=== PATIENT | male | born 1955 | race Caucasian/White ===

== ENCOUNTER → 2016-10-26 | Outpatient (CLI) | payer MEDICARE, OTHER ==
[~2016-10-26] VITALS: Ht 185.4 cm; Wt 115.2 kg
[~2016-10-26] MED LIST: ALLOPURINOL300 MG PO; AMITRIPTYLINE H75 MG PO; ASPIR 8181 MG PO; CRESTOR10 MG PO; LISINOPRIL40 MG PO; METOPROLOL SUCC50 MG PO; OMEPRAZOLE20 MG PO; PERCOCET 10-321 EACH PO; XARELTO10 MG PO
[2016-10-26 09:33] LABS: HEMOGLOBIN 15.8 gm/dl (14.0-17.5); RED BLOOD COUNT 5.44 M/UL (4.20-5.50); WHITE BLOOD COUNT 6.2 K/UL (4.5-11.0)
[2016-10-26 09:49] LABS: BUN/CREATININE RATIO 13 (0-10)
== END ==
LOC: OPSV2 08:43
PROVIDERS: Orthopaedic Surgery
DX: Z01.812 Encounter for preprocedural laboratory examination (principal); Z01.810 Encounter for preprocedural cardiovascular examination; M17.11 Unilateral primary osteoarthritis, right knee
CPT/HCPCS: 36415; 80048; 85025; 87081; 93005

== ENCOUNTER 2016-11-08 05:39 | Inpatient (IN) | payer MEDICARE, OTHER ==
[~2016-11-08] VITALS: Ht 185.4 cm; Wt 115.2 kg
[~2016-11-08 05:39] MED LIST changes: -ASPIR 8181 MG PO; -CRESTOR10 MG PO; -PERCOCET 10-321 EACH PO; -XARELTO10 MG PO
[2016-11-08] MEDS ORDERED: ASPIR 8181 MG PO (06:58)
[2016-11-08] MEDS ORDERED: CRESTOR10 MG PO (06:58)
[2016-11-09 05:02] LABS: HEMOGLOBIN 12.2 gm/dl (14.0-17.5); RED BLOOD COUNT 4.22 M/UL (4.20-5.50); WHITE BLOOD COUNT 10.5 K/UL (4.5-11.0)
[2016-11-09 05:16] LABS: BUN/CREATININE RATIO 14 (0-10)
[2016-11-10 06:52] LABS: HEMOGLOBIN 12.3 gm/dl (14.0-17.5); RED BLOOD COUNT 4.17 M/UL (4.20-5.50); WHITE BLOOD COUNT 10.1 K/UL (4.5-11.0)
[2016-11-10 07:29] LABS: BUN/CREATININE RATIO 11 (0-10)
[2016-11-11 06:05] LABS: HEMOGLOBIN 11.2 gm/dl (14.0-17.5); RED BLOOD COUNT 3.88 M/UL (4.20-5.50); WHITE BLOOD COUNT 8.8 K/UL (4.5-11.0)
[2016-11-11 06:20] LABS: BUN/CREATININE RATIO 13 (0-10)
[2016-11-11] MEDS ORDERED: PERCOCET 10-321 EACH PO (19:39)
[2016-11-11] MEDS ORDERED: XARELTO10 MG PO (19:39)
[2017-02-09] MEDS ORDERED: XARELTO10 MG PO (14:11)
[2017-02-09] MEDS ORDERED: PERCOCET 10-321 EACH PO (14:12)
[2017-02-09] MEDS ORDERED: CRESTOR10 MG PO (14:19)
== END 2016-11-11 20:40 | disposition home health service (06) | DRG 470 ==
LOC: ZOBSOF 05:39 → MED SURG 4 16:47 → M/S 17:09
PROVIDERS: ADMIT Orthopaedic Surgery
PROC: 0SRC0J9 Replacement of Right Knee Joint with Synthetic Substitute, Cemented, Open Approach (ICD-10-PCS; principal; 2016-11-08 08:15)
DX: M17.11 Unilateral primary osteoarthritis, right knee (principal); I10 Essential (primary) hypertension; E78.5 Hyperlipidemia, unspecified; Z79.82 Long term (current) use of aspirin; Z79.899 Other long term (current) drug therapy; K21.9 Gastro-esophageal reflux disease without esophagitis; I95.1 Orthostatic hypotension; M19.90 Unspecified osteoarthritis, unspecified site; G89.29 Other chronic pain; M54.9 Dorsalgia, unspecified; Z82.49 Family history of ischemic heart disease and other diseases of the circulatory system; Z83.3 Family history of diabetes mellitus
CPT/HCPCS: 36415; 71010; 73560; 80048; 85025; 86850; 86900; 86901; 97110; 97116; 97530; 97535; C1776; J0690; J1100; J1200; J1885; J2250; J2270; J2274; J2405; J2710; J2795; J3010; J3370; J7030; J7050; J7120

== ENCOUNTER → 2017-01-17 | Outpatient (CLI) | payer MEDICARE, OTHER ==
[~2017-01-17] MED LIST changes: +ASPIR 8181 MG PO; +CRESTOR10 MG PO; +PERCOCET 10-321 EACH PO; +XARELTO10 MG PO
[2017-01-17 08:15] LABS: HEMOGLOBIN 14.9 gm/dl (14.0-17.5); RED BLOOD COUNT 5.33 M/UL (4.20-5.50); WHITE BLOOD COUNT 7.3 K/UL (4.5-11.0)
[2017-01-17 08:29] LABS: BUN/CREATININE RATIO 8 (0-10)
== END ==
LOC: OPSV2 07:44
PROVIDERS: Orthopaedic Surgery
DX: Z01.810 Encounter for preprocedural cardiovascular examination (principal); Z01.812 Encounter for preprocedural laboratory examination; M17.12 Unilateral primary osteoarthritis, left knee
CPT/HCPCS: 36415; 80048; 81001; 85025; 93005

== ENCOUNTER 2020-10-05 03:48 | Emergency (ER) | payer MEDICARE ==
[~2020-10-05 03:48] MED LIST changes: +NORCO 7.5-3251 EACH PO; +TRICOR48 MG PO
[2020-10-05 04:56] LABS: HEMOGLOBIN 15.5 gm/dl (14.0-17.5); RED BLOOD COUNT 5.22 M/UL (4.20-5.50); WHITE BLOOD COUNT 11.3 K/UL (4.5-11.0)
[2020-10-05 05:03] LABS: BUN/CREATININE RATIO 13 (0-10)
== END 2020-10-05 09:20 | disposition home or self-care (01) ==
LOC: ER1 03:48
PROVIDERS: Family Medicine
DX: R10.11 Right upper quadrant pain (principal); R07.9 Chest pain, unspecified; I10 Essential (primary) hypertension
CPT/HCPCS: 80053; 82550; 82553; 83605; 84484; 85025; 85379; 85610; 93005; 99285; Q9967

== ENCOUNTER → 2021-08-27 | Outpatient (CLI) | payer MEDICARE ==
[~2021-08-27] MED LIST changes: +ALLOPURINOL100 MG PO; +ASPIRIN EC81 MG PO; +CARVEDILOL25 MG PO; +CYCLOBENZAPRINE10 MG PO; +FAMOTIDINE40 MG PO; +FLOMAX 0.4 MG0.4 MG PO; +FOLIC ACID; +HYDROCODON-ACE1 EAC6 PO; +TEST; +TRAZODONE HCL150 MG PO; +VITAMIN B12; +VITAMIN D
[2021-08-27 13:19] LABS: RED BLOOD COUNT 5.66 M/UL (4.20-5.50)
== END ==
LOC: OPSV2 10:30 → EDSTATUS 10:30 → OPSV2 10:50
PROVIDERS: Orthopaedic Surgery
DX: Z01.818 Encounter for other preprocedural examination (principal); M47.26 Other spondylosis with radiculopathy, lumbar region; M51.16 Intervertebral disc disorders with radiculopathy, lumbar region; M43.16 Spondylolisthesis, lumbar region; M48.061 Spinal stenosis, lumbar region without neurogenic claudication
CPT/HCPCS: 36415; 71046; 80048; 81001; 85027; 85610; 85730; 87081; 93005

== ENCOUNTER 2021-09-06 05:06 | Inpatient (IN) | payer MEDICARE ==
[~2021-09-06] VITALS: Ht 185.4 cm; Wt 136.1 kg
[~2021-09-06 05:06] MED LIST changes: -ALLOPURINOL100 MG PO; -CARVEDILOL25 MG PO; -FAMOTIDINE40 MG PO; -FLOMAX 0.4 MG0.4 MG PO; -TEST; +TESTERONE
[2021-09-06 15:18] LABS: HEMOGLOBIN 13.7 gm/dl (14.0-17.5); RED BLOOD COUNT 4.58 M/UL (4.20-5.50); WHITE BLOOD COUNT 15.5 K/UL (4.5-11.0)
[2021-09-07 02:20] LABS: HEMOGLOBIN 12.6 gm/dl (14.0-17.5); RED BLOOD COUNT 4.32 M/UL (4.20-5.50); WHITE BLOOD COUNT 23.4 K/UL (4.5-11.0)
[2021-09-07] MEDS ORDERED: FAMOTIDINE40 MG PO (11:55)
[2021-09-07] MEDS ORDERED: ALLOPURINOL100 MG PO (11:57)
[2021-09-07] MEDS ORDERED: FLOMAX 0.4 MG0.4 MG PO (11:58)
[2021-09-07] MEDS ORDERED: CARVEDILOL25 MG PO (12:04)
[2021-09-07] MEDS ORDERED: ANASTROZOLE1 MG PO (13:43)
[2021-09-07] MEDS ORDERED: CRESTOR 10 MG T10 MG PO (13:44)
[2021-09-07] MEDS ORDERED: DEPO-TESTO200 MG/1 M SC (13:46)
[2021-09-07] MEDS ORDERED: LOSARTAN POTASS25 MG PO (13:47)
[2021-09-07] MEDS ORDERED: TRAZODONE HCL150 MG PO (13:48)
[2021-09-07] MEDS ORDERED: HYDROCODON-ACE1 EAC6 PO (13:49)
[2021-09-07] MEDS ORDERED: VITAMIN D21250 MCG PO (13:52)
[2021-09-07] MEDS ORDERED: TERAZOSIN HCL5 MG PO (13:54)
[2021-09-08 06:23] LABS: BUN/CREATININE RATIO 14 (0-10)
[2021-09-08 07:52] LABS: HEMOGLOBIN 11.4 gm/dl (14.0-17.5)
[2021-09-08 07:54] LABS: RED BLOOD COUNT 3.85 M/UL (4.20-5.50)
[2021-09-08 16:05] LABS: HEMOGLOBIN 11.2 gm/dl (14.0-17.5); RED BLOOD COUNT 3.88 M/UL (4.20-5.50); WHITE BLOOD COUNT 19.6 K/UL (4.5-11.0)
[2021-09-08 16:49] LABS: BUN/CREATININE RATIO 16 (0-10)
[2021-09-09 06:49] LABS: BUN/CREATININE RATIO 15 (0-10)
[2021-09-09 11:34] LABS: HEMOGLOBIN 9.9 gm/dl (14.0-17.5); WHITE BLOOD COUNT 16.5 K/UL (4.5-11.0)
[2021-09-09 11:39] LABS: RED BLOOD COUNT 3.44 M/UL (4.20-5.50)
[2021-09-10 06:12] LABS: HEMOGLOBIN 8.8 gm/dl (14.0-17.5)
[2021-09-10 06:13] LABS: RED BLOOD COUNT 3.09 M/UL (4.20-5.50); WHITE BLOOD COUNT 10.3 K/UL (4.5-11.0)
[2021-09-10 07:02] LABS: BUN/CREATININE RATIO 16 (0-10)
[2021-09-11 06:15] LABS: BUN/CREATININE RATIO 16 (0-10)
[2021-09-11 07:50] LABS: HEMOGLOBIN 9.1 gm/dl (14.0-17.5); RED BLOOD COUNT 3.04 M/UL (4.20-5.50); WHITE BLOOD COUNT 8.6 K/UL (4.5-11.0)
[2021-09-11 07:59] LABS: BUN/CREATININE RATIO 15 (0-10)
[2021-09-12 05:59] LABS: RED BLOOD COUNT 3.36 M/UL (4.20-5.50); WHITE BLOOD COUNT 8.3 K/UL (4.5-11.0)
[2021-09-12 06:58] LABS: BUN/CREATININE RATIO 14 (0-10)
[2021-09-13 05:31] LABS: HEMOGLOBIN 10.2 gm/dl (14.0-17.5); RED BLOOD COUNT 3.54 M/UL (4.20-5.50); WHITE BLOOD COUNT 8.7 K/UL (4.5-11.0)
[2021-09-13 06:05] LABS: BUN/CREATININE RATIO 17 (0-10)
[2021-09-14 08:55] LABS: HEMOGLOBIN 11.3 gm/dl (14.0-17.5); WHITE BLOOD COUNT 8.7 K/UL (4.5-11.0)
[2021-09-14 09:03] LABS: RED BLOOD COUNT 3.95 M/UL (4.20-5.50)
[2021-09-14] MEDS ORDERED: HYDROCODON-ACE1 EAC4 PO (09:12)
[2021-09-14 09:14] LABS: BUN/CREATININE RATIO 16 (0-10)
[2021-09-14] MEDS ORDERED: DOCUSATE SODIU100 MG PO (11:56)
[2021-09-14] MEDS ORDERED: POLYETHYLENE GL17 GM PO (11:56)
[2021-09-14] MEDS ORDERED: CARAFATE 1 GM TA1 GM PO (11:56)
[2021-09-14] MEDS ORDERED: MYCOSTATIN100000 UTS PO ×2 (11:56→11:57)
[2021-09-14] MEDS ORDERED: NITROGLYCERIN0.4 MG SL (11:57)
[2021-09-14] MEDS ORDERED: LEVOFLOXACIN750 MG PO (12:08)
[2021-09-14] MEDS ORDERED: MUPIROCIN22 GM TOP (12:08)
[2021-09-14] MEDS ORDERED: PROTONIX 40 MG40 M1 PO (12:08)
== END 2021-09-14 17:07 | disposition home health service (06) | DRG 453 ==
LOC: OR 05:06 → CCU 23:54
PROVIDERS: Internal Medicine; Internal Medicine Nephrology; Nurse Practitioner Family; ADMIT Orthopaedic Surgery
PROC: 0SB20ZZ Excision of Lumbar Vertebral Disc, Open Approach (ICD-10-PCS; 2021-09-06)
PROC: 01NB0ZZ Release Lumbar Nerve, Open Approach (ICD-10-PCS; 2021-09-06)
PROC: 4A11X4G Monitoring of Peripheral Nervous Electrical Activity, Intraoperative, External Approach (ICD-10-PCS; 2021-09-06)
PROC: 01NR0ZZ Release Sacral Nerve, Open Approach (ICD-10-PCS; principal; 2021-09-06 07:30)
PROC: 0SG30AJ Fusion of Lumbosacral Joint with Interbody Fusion Device, Posterior Approach, Anterior Column, Open Approach (ICD-10-PCS; 2021-09-06 07:30)
PROC: 0SG3071 Fusion of Lumbosacral Joint with Autologous Tissue Substitute, Posterior Approach, Posterior Column, Open Approach (ICD-10-PCS; 2021-09-06 07:30)
PROC: 0SG0071 Fusion of Lumbar Vertebral Joint with Autologous Tissue Substitute, Posterior Approach, Posterior Column, Open Approach (ICD-10-PCS; 2021-09-06 07:30)
PROC: 0SG10AJ Fusion of 2 or more Lumbar Vertebral Joints with Interbody Fusion Device, Posterior Approach, Anterior Column, Open Approach (ICD-10-PCS; 2021-09-06 07:30)
PROC: 3E033XZ Introduction of Vasopressor into Peripheral Vein, Percutaneous Approach (ICD-10-PCS; 2021-09-07)
PROC: 5A0935A Assistance with Respiratory Ventilation, Less than 24 Consecutive Hours, High Flow/Velocity Cannula (ICD-10-PCS; 2021-09-07)
PROC: 5A1935Z Respiratory Ventilation, Less than 24 Consecutive Hours (ICD-10-PCS; 2021-09-07)
PROC: 30233N1 Transfusion of Nonautologous Red Blood Cells into Peripheral Vein, Percutaneous Approach (ICD-10-PCS; 2021-09-10)
DX: M48.061 Spinal stenosis, lumbar region without neurogenic claudication (principal); N17.0 Acute kidney failure with tubular necrosis; J95.821 Acute postprocedural respiratory failure; Z20.822 Contact with and (suspected) exposure to COVID-19; J98.11 Atelectasis; D62 Acute posthemorrhagic anemia; E87.2 Acidosis; M62.82 Rhabdomyolysis; Z68.41 Body mass index [BMI] 40.0-44.9, adult; I95.2 Hypotension due to drugs; I12.9 Hypertensive chronic kidney disease with stage 1 through stage 4 chronic kidney disease, or unspecified chronic kidney disease; N18.30 Chronic kidney disease, stage 3 unspecified; M10.9 Gout, unspecified; T42.75XA Adverse effect of unspecified antiepileptic and sedative-hypnotic drugs, initial encounter; Y83.8 Other surgical procedures as the cause of abnormal reaction of the patient, or of later complication, without mention of misadventure at the time of the procedure; M43.16 Spondylolisthesis, lumbar region; E83.39 Other disorders of phosphorus metabolism; Z96.653 Presence of artificial knee joint, bilateral; M54.16 Radiculopathy, lumbar region; E78.5 Hyperlipidemia, unspecified; M51.26 Other intervertebral disc displacement, lumbar region; E87.5 Hyperkalemia; M60.9 Myositis, unspecified; E83.51 Hypocalcemia; E66.9 Obesity, unspecified; K21.9 Gastro-esophageal reflux disease without esophagitis; N40.0 Benign prostatic hyperplasia without lower urinary tract symptoms; M47.896 Other spondylosis, lumbar region; G47.00 Insomnia, unspecified; Z79.01 Long term (current) use of anticoagulants; Z79.82 Long term (current) use of aspirin; Z98.890 Other specified postprocedural states; Z88.0 Allergy status to penicillin
CPT/HCPCS: 36415; 36430; 71045; 72100; 72110; 76000; 80048; 80053; 80202; 81001; 82550; 82553; 82570; 82803; 83605; 83735; 83874; 83970; 84100; 84133; 84156; 84300; 84484; 85025; 85027; 86850; 86900; 86901; 86920; 86927; 87040; 87086; 89050; 93005; 94002; 94664; 94760; 97116-GP-CQ; 97162; 97166; 97530; 97530-GP-CQ; 97535; C1713; C1762; C9113; J0360; J0690; J0692; J0696; J1040; J1100; J1170; J1644; J1650; J1956; J2001; J2250; J2270; J2370; J2405; J2704; J2710; J3010; J3260; J3370; J3475; J7030; J7040; J7070; J7120; P9016; P9017; P9047